=== PATIENT | male | born 2000 | race Caucasian/White ===

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

== ENCOUNTER 2024-10-18 22:02 | Emergency (ER) | payer OTHER ==
[~2024-10-18] VITALS: Ht 175.3 cm; Wt 63.0 kg
[~2024-10-18 22:02] MED LIST changes: +ALBU18HF12 IH; -ALBU8HFA IH; -FLUT16H NASAL; +FLUT16SP NASAL
[2024-10-18] MEDS: PERTUSS(ACELL),DIPH,TET/PF 0.5 ML SYRINGE [ADULT] IM. ONE (23:24)
[2024-10-19] MEDS: BACITRACIN 28 GM OINTMENT TP ONE (00:16)
[2024-10-19 01:00] VITALS: BP 124/65; PULSE 73; RESP 18; TEMP 98.1; O2SAT 97
== END 2024-10-19 01:18 | disposition home or self-care (01) ==
LOC: EMS 22:02
DX: S50.312A Abrasion of left elbow, initial encounter (principal); J45.909 Unspecified asthma, uncomplicated; Z23 Encounter for immunization; V89.2XXA Person injured in unspecified motor-vehicle accident, traffic, initial encounter; Y93.89 Activity, other specified; Y92.410 Unspecified street and highway as the place of occurrence of the external cause; Y99.8 Other external cause status
CPT/HCPCS: 90471; 90715; 99283